=== PATIENT | female | born 1970 | race Native Hawaiian/Other Pacific Islander ===

== ENCOUNTER 2017-07-09 12:15 | Emergency (ER) | payer OTHER ==
[~2017-07-09] VITALS: Ht 167.6 cm; Wt 95.7 kg
[~2017-07-09 12:15] MED LIST: AMLO2.5T PO; HUMALOG100 MG/ML SC; HYDR25TA60 PO; LANTUS100 MG/ML SC; LISI10TA11 PO
[2017-07-09 13:13] LABS: PLATELET COUNT 267 K/uL (152-353)
[2017-07-09] MEDS ORDERED: ZESTRIL40 MG OR (13:13)
[2017-07-09 13:33] LABS: PARTIAL THROMBOPLASTIN TIME 30.6 SECONDS (24.5-33.6)
[2017-07-09 14:10] VITALS: BP 132/93; TEMP 98
== END 2017-07-09 14:10 | disposition home or self-care (01) ==
LOC: ED 12:15
PROVIDERS: Family Medicine
PROC: 2Y41X5Z Packing of Nasal Region using Packing Material (ICD-10-PCS; principal; 2017-07-09)
DX: R04.0 Epistaxis (principal)
CPT/HCPCS: 36415; 85027; 85610; 85730; 99283

== ENCOUNTER 2020-03-08 23:51 | Emergency (ER) | payer OTHER ==
[~2020-03-08] VITALS: Ht 167.6 cm; Wt 94.8 kg
[~2020-03-08 23:51] MED LIST changes: +HUMALOG JU100 UNIT/M SC; -HUMALOG100 MG/ML SC; -LANTUS100 MG/ML SC; +LANTUS100 UNIT/M SC; +ZESTRIL40 MG OR
[2020-03-09 01:00] VITALS: BP 136/90; TEMP 99.2
== END 2020-03-09 03:40 | disposition home or self-care (01) ==
LOC: ED 23:51
PROC: 2W3DX1Z Immobilization of Left Lower Arm using Splint (ICD-10-PCS; principal; 2020-03-08)
DX: S62.647A Nondisplaced fracture of proximal phalanx of left little finger, initial encounter for closed fracture (principal); W10.8XXA Fall (on) (from) other stairs and steps, initial encounter; Y92.89 Other specified places as the place of occurrence of the external cause
CPT/HCPCS: 99282

== ENCOUNTER 2020-03-11 17:57 | Emergency (ER) | payer OTHER ==
[~2020-03-11] VITALS: Ht 167.6 cm; Wt 93.4 kg
[2020-03-11] MEDS ORDERED: ALBU90AE13 INH (18:26)
[2020-03-11 19:27] LABS: PLATELET COUNT 355 K/uL (152-353)
[2020-03-11 19:35] LABS: POTASSIUM 3.3 mmol/L (3.6-5.2)
[2020-03-11 23:05] VITALS: BP 91/50; TEMP 98.2
== END 2020-03-11 23:05 | disposition short-term general hospital (02) ==
LOC: ED 17:57
PROVIDERS: Emergency Medicine Emergency Medical Services
PROC: 0T9B70Z Drainage of Bladder with Drainage Device, Via Natural or Artificial Opening (ICD-10-PCS; principal; 2020-03-11)
DX: N17.9 Acute kidney failure, unspecified (principal)
CPT/HCPCS: 36415; 51702; 80053; 81000; 83605; 85027; 87040; 96360; 96375; 96376; 99284; J2405

== ENCOUNTER 2020-07-11 13:15 | Emergency (ER) | payer OTHER ==
[~2020-07-11] VITALS: Ht 167.6 cm; Wt 95.3 kg
[~2020-07-11 13:15] MED LIST changes: +ALBU90AE13 INH
[2020-07-11 14:15] LABS: PLATELET COUNT 366 K/uL (152-353)
[2020-07-11 14:19] LABS: POTASSIUM 4.2 mmol/L (3.6-5.2)
[2020-07-11 16:30] VITALS: BP 126/76; TEMP 98.9
== END 2020-07-11 16:30 | disposition short-term general hospital (02) ==
LOC: ED 13:21
PROVIDERS: Emergency Medicine Emergency Medical Services
PROC: 0T9B70Z Drainage of Bladder with Drainage Device, Via Natural or Artificial Opening (ICD-10-PCS; principal; 2020-07-11)
DX: F41.9 Anxiety disorder, unspecified (principal); T43.621A Poisoning by amphetamines, accidental (unintentional), initial encounter; Y92.89 Other specified places as the place of occurrence of the external cause; Z03.818 Encounter for observation for suspected exposure to other biological agents ruled out
CPT/HCPCS: 36600; 51702; 80053; 80307; 80320; 80329; 81000; 82550; 82805; 84484; 85027; 87077; 87086; 87088; 87186; 87635; 96360; 96361; 96365; 96375; 96376; 99285; J1200; J2060; U0003

== ENCOUNTER 2021-01-10 11:59 | Emergency (ER) | payer OTHER ==
[~2021-01-10] VITALS: Ht 167.6 cm; Wt 90.7 kg
[2021-01-10 12:00] VITALS: TEMP 97.1
[2021-01-10 15:41] VITALS: BP 136/88
== END 2021-01-10 15:42 | disposition home or self-care (01) ==
LOC: ED 11:59
DX: K94.03 Colostomy malfunction (principal)
CPT/HCPCS: 99282

== ENCOUNTER 2021-01-12 23:09 | Emergency (ER) | payer OTHER ==
[~2021-01-12] VITALS: Ht 167.6 cm; Wt 90.7 kg
[2021-01-13 00:42] LABS: PLATELET COUNT 364 K/uL (152-353)
[2021-01-13 00:45] LABS: POTASSIUM 3.5 mmol/L (3.6-5.2)
[2021-01-13 01:03] LABS: PARTIAL THROMBOPLASTIN TIME 22.9 SECONDS (24.5-33.6)
[2021-01-13 03:28] VITALS: TEMP 98.6
[2021-01-13 04:00] VITALS: BP 125/62
== END 2021-01-13 04:16 | disposition short-term general hospital (02) ==
LOC: ED 23:09
PROVIDERS: Hospitalist
DX: K94.09 Other complications of colostomy (principal); M72.6 Necrotizing fasciitis; Z98.890 Other specified postprocedural states; T81.30XA Disruption of wound, unspecified, initial encounter
CPT/HCPCS: 36415; 80053; 83605; 83690; 85027; 85610; 85730; 87040; 96360; 96361; 96365; 96375; 99285; J1170; J1200; J2405; J3370; Q9963

== ENCOUNTER 2021-03-28 20:32 | Emergency (ER) | payer OTHER ==
[~2021-03-28] VITALS: Ht 167.6 cm; Wt 86.2 kg
[2021-03-28 21:49] LABS: PLATELET COUNT 275 K/uL (152-353)
[2021-03-28 22:01] LABS: POTASSIUM 3.2 mmol/L (3.6-5.2)
[2021-03-29 02:50] VITALS: BP 120/70; TEMP 98.6
== END 2021-03-29 02:50 | disposition home or self-care (01) ==
LOC: ED 20:32
PROVIDERS: Hospitalist
DX: R10.84 Generalized abdominal pain (principal); Z93.3 Colostomy status
CPT/HCPCS: 36415; 80053; 82150; 83690; 85027; 96360; 96361; 96365; 96375; 96376; 99284; J0696; J1885; J2270; J2405; Q9963

== ENCOUNTER 2021-12-22 13:43 | Emergency (ER) | payer OTHER ==
[~2021-12-22] VITALS: Ht 167.6 cm; Wt 86.2 kg
[2021-12-22 15:16] LABS: PLATELET COUNT 228 K/uL (152-353)
[2021-12-22 15:29] LABS: POTASSIUM 4.1 mmol/L (3.6-5.2)
[2021-12-22 19:20] VITALS: BP 126/68; TEMP 98.7
== END 2021-12-22 19:20 | disposition home or self-care (01) ==
LOC: ED 13:43
PROVIDERS: Emergency Medicine Emergency Medical Services
DX: K43.5 Parastomal hernia without obstruction or gangrene (principal); N39.0 Urinary tract infection, site not specified; F15.10 Other stimulant abuse, uncomplicated; Z93.3 Colostomy status
CPT/HCPCS: 80053; 80307; 81000; 82150; 83690; 85027; 87077; 87086; 87088; 87186; 96360; 96361; 96365; 96375; 99284; J0696; J2270; J2405; Q9963